=== PATIENT | male | born 1990 | race Caucasian/White ===

== ENCOUNTER 2020-10-29 19:02 | Emergency (ER) | payer OTHER ==
[~2020-10-29 19:02] MED LIST: AMOXICILLIN875 MG PO; BACTRIM DS TAB1 EACH PO; BENADRYL25 MG PO
[2020-10-29 22:47] LABS: CORONAVIRUS 2019 SARS-COV-2 NEGATIVE (NEGATIVE); INFLUENZA A NAA NEGATIVE (NEGATIVE)
[2020-10-30] MEDS ORDERED: AMOXICILLIN875 MG PO (01:35)
[2020-10-30] MEDS ORDERED: VENTOLIN HFA18 GM INH (01:35)
[2020-10-30] MEDS ORDERED: CHEST CONGESTI400 MG PO (01:35)
[2020-10-30] MEDS ORDERED: PREDNISONE20 MG PO (01:35)
== END 2020-10-30 01:50 | disposition home or self-care (01) ==
LOC: FER 19:02
PROVIDERS: Emergency Medicine
DX: J45.909 Unspecified asthma, uncomplicated (principal); J32.9 Chronic sinusitis, unspecified; F17.210 Nicotine dependence, cigarettes, uncomplicated; Z91.040 Latex allergy status; Z20.822 Contact with and (suspected) exposure to COVID-19
CPT/HCPCS: 71046; U0002

== ENCOUNTER 2021-02-07 22:13 | Emergency (ER) | payer SELFPAY ==
[~2021-02-07 22:13] MED LIST changes: +CHEST CONGESTI400 MG PO; +PREDNISONE20 MG PO; +VENTOLIN HFA18 GM INH
[2021-02-08] MEDS ORDERED: TRIAMCINOLONE 080 GM TOP (00:26)
[2021-02-08] MEDS ORDERED: CLEOCIN300 MG PO (00:26)
[2021-02-08] MEDS ORDERED: 24HR ALLERGY REL5 MG PO (00:26)
== END 2021-02-08 00:37 | disposition home or self-care (01) ==
LOC: FER 22:13
DX: L23.9 Allergic contact dermatitis, unspecified cause (principal); K04.7 Periapical abscess without sinus; Z90.49 Acquired absence of other specified parts of digestive tract; F17.210 Nicotine dependence, cigarettes, uncomplicated; Z91.040 Latex allergy status
CPT/HCPCS: 99282; J7512

== ENCOUNTER 2021-11-18 01:08 | Emergency (ER) | payer SELFPAY ==
[~2021-11-18 01:08] MED LIST changes: +24HR ALLERGY REL5 MG PO; +CLEOCIN300 MG PO; +TRIAMCINOLONE 080 GM TOP
== END 2021-11-18 02:28 | disposition home or self-care (01) ==
LOC: FER 01:08
DX: J45.909 Unspecified asthma, uncomplicated (principal); F17.200 Nicotine dependence, unspecified, uncomplicated; Z91.040 Latex allergy status
CPT/HCPCS: 94664; 99284